=== PATIENT | female | born 1960 | race Caucasian/White ===

== ENCOUNTER → 2024-01-13 15:13 | Outpatient (REF) | payer OTHER, SELFPAY | LOC: RAD 15:13 | PROVIDERS: ATTENDING PHYSICIAN Family Medicine | DX: M41.20 Other idiopathic scoliosis, site unspecified (principal) | CPT/HCPCS: 72082 ==

== ENCOUNTER → 2024-06-08 17:57 | Outpatient (REF) | payer OTHER, SELFPAY | LOC: WDC 17:57 | PROVIDERS: ATTENDING PHYSICIAN Obstetrics & Gynecology; FAMILY PHYSICIAN Family Medicine | DX: Z12.31 Encounter for screening mammogram for malignant neoplasm of breast (principal); Z12.39 Encounter for other screening for malignant neoplasm of breast | CPT/HCPCS: 77063; 77067 ==

== ENCOUNTER → 2025-06-21 17:02 | Outpatient (REF) | payer OTHER, SELFPAY | LOC: WDC 17:02 | PROVIDERS: ATTENDING PHYSICIAN Obstetrics & Gynecology; FAMILY PHYSICIAN Family Medicine | DX: Z12.31 Encounter for screening mammogram for malignant neoplasm of breast (principal) | CPT/HCPCS: 77063; 77067 ==

== ENCOUNTER → 2025-09-29 08:36 | Outpatient (REF) | payer OTHER, SELFPAY | LOC: WDC 08:36 | PROVIDERS: ATTENDING PHYSICIAN Obstetrics & Gynecology; FAMILY PHYSICIAN Family Medicine | DX: N64.4 Mastodynia (principal) | CPT/HCPCS: 76642 ==

== ENCOUNTER → 2025-09-30 14:52 | Outpatient (REF) | payer OTHER, SELFPAY | LOC: RAD 14:52 | PROVIDERS: ATTENDING PHYSICIAN Family Medicine; OTHER PHYSICIAN Nurse Practitioner Family | DX: M85.88 Other specified disorders of bone density and structure, other site (principal) | CPT/HCPCS: 77080 ==